=== PATIENT | male | born 1960 ===

== ENCOUNTER 2018-02-26 06:45 | Emergency (ER) | payer SELFPAY ==
[2018-02-26 07:02] VITALS: RESP 18; TEMP 98
--- NOTE | 2018-02-26 08:06 | C.PDOC ---
History Of Present Illness 57year old male, presents to ED with complaints of left shoulder pain for the past 6 months. Patient states the pain is aching, worse at night and cold temperatures. Patient reports he has been evaluated by his PMD regarding the same complaints and has had XRays done. Patient is taking Celebrex with mild relief of pain; reports after his most recent evaluation, he has been taking Tramadol with mild relief however the pain persists, prompting the visit today. Patient is currently requesting "a shot" for the pain. He denies any new injuries or trauma, weakness, numbness, or chest pain. He has no other medical complaints. Time Seen by Provider: 02/26/18 07:22 Chief Complaint (Nursing): Upper Extremity Problem/Injury History Per: Patient History/Exam Limitations: no limitations Onset/Duration Of Symptoms: Days Current Symptoms Are (Timing): Still Present Quality: "Pain" Severity: Moderate Exacerbating Factor(s): Worse At Night Recent travel outside of the [place] States: No Additional History Per: Patient Past Medical History Reviewed: Historical Data, Nursing Documentation, Vital Signs Vital Signs: Last Vital Signs Temp 98.0 F 02/26/18 06:57 Pulse 70 02/26/18 08:15 Resp 18 02/26/18 08:15 BP 121/77 02/26/18 08:15 Pulse Ox 98 02/26/18 10:38 - Medical History PMH: HTN Denies: Chronic Kidney Disease Surgical History: No Surg Hx Family History: States: No Known Family Hx - Social History Hx Alcohol Use: No Hx Substance Use: No - Immunization History Hx Influenza Vaccination: No Review Of Systems Except As Marked, All Systems Reviewed And Found Negative. Cardiovascular: Negative for: Chest Pain Musculoskeletal: Positive for: Shoulder Pain (left) Neurological: Negative for: Weakness, Numbness Physical Exam - Physical Exam Appears: Non-toxic, No Acute Distress Skin: Normal Color, Warm, Dry Head: Atraumatic, Normacephalic Eye(s): bilateral: Normal Inspection, EOMI Neck: Normal ROM, Supple Chest: Symmetrical Cardiovascular: Rhythm Regular Respiratory: Normal Breath Sounds, No Wheezing Extremity: Normal ROM, Tenderness (mild tenderness to lateral left shoulder), No Deformity Neurological/Psych: Oriented x3, Normal Speech Gait: Steady ED Course And Treatment O2 Sat by Pulse Oximetry: 98 (RA) Pulse Ox Interpretation: Normal Medical Decision Making Medical Decision Making: Impression: Musculoskeletal pain Plan: Patient with chronic left shoulder pain, no recent trauma. EKG obtained during triage NS at 72 bpm with LAD, no ST elevation or depression. Toradol IM ordered. Shortly after patient states the pain is better and asking for an Rx. Will prescribe prednisone. I recommend patient follow up with orthopedic or physical therapist. Disposition Counseled Patient/Family Regarding: Diagnosis, Need For Followup, Rx Given - Disposition Referrals: Reyes Jauregui III, MD [Staff Provider] - Disposition: HOME/ ROUTINE Disposition Time: 08:04 Condition: GOOD Additional Instructions: Brittany un seguimiento con king mdico u ortopdico si el dolor persiste Prescriptions: Prednisone 50 mg PO DAILY #4 tablet Instructions: Shoulder Pain (DC) Forms: [employer] (Samoan) Print Language: COL[place]AN - POA Present On Arrival: None - Clinical Impression Clinical Impression: Shoulder pain - PA / GRADE TEACHER / Resident Statement MD/DO has reviewed & agrees with the documentation as recorded. - Scribe Statement The provider has reviewed the documentation as recorded by the Scribe (Sakshi Lake) Provider Attestation: All medical record entries made by the Scribe were at my direction and personally dictated by me. I have reviewed the chart and agree that the record accurately reflects my personal performance of the history, physical exam, medical decision making, and the department course for this patient. I have also personally directed, reviewed, and agree with the discharge instructions and disposition.
[2018-02-26 08:16] VITALS: BP 121/77; PULSE 70
[2018-02-26 09:04] VITALS: O2SAT 98
--- NOTE | 2018-02-27 15:28 | CARD ---
APPROVED REPORT EKG Measurement Heart [id number] <Conclusion> Normal sinus rhythm Left axis deviation Abnormal ECG
== END 2018-02-26 08:16 | disposition home or self-care (01) ==
LOC: C.ER 06:45
DX: M25.512 Pain in left shoulder (principal); I10 Essential (primary) hypertension
CPT/HCPCS: 93005; 96372; 99284; J1885

== ENCOUNTER 2018-04-13 22:56 | Emergency (ER) | payer MEDICAID, OTHER ==
[2018-04-13 23:31] VITALS: BP 145/88; PULSE 90; RESP 20; TEMP 98.2; O2SAT 97
--- NOTE | 2018-04-14 00:58 | C.PDOC ---
History Of Present Illness 58 y/o male with hx dm, c/o 6 months of left upper arm pain and 2 days of bilateral lower leg pain.,described as tingling and burning, that hasn't allowed him to sleep. pt denies any trauma, fever, chills, swelling, no cp or sob. pt has tylenol #3, #4, and tramadol from his doctor for the arm pain; dx unclear. no prior hx of this leg pain. Time Seen by Provider: 04/13/18 23:44 Chief Complaint (Nursing): Upper Extremity Problem/Injury History Per: Patient, Family History/Exam Limitations: no limitations Onset/Duration Of Symptoms: Days (2) Current Symptoms Are (Timing): Still Present Quality: Burning, Other (tingling) Severity: Moderate Past Medical History Reviewed: Historical Data, Nursing Documentation, Vital Signs Vital Signs: Last Vital Signs Temp 98.2 F 04/13/18 23:27 Pulse 90 04/13/18 23:27 Resp 20 04/13/18 23:27 BP 145/88 04/13/18 23:27 Pulse Ox 97 04/14/18 03:36 - Medical History PMH: Diabetes, HTN Denies: Chronic Kidney Disease Family History: States: Unknown Family Hx - Social History Hx Alcohol Use: No Hx Substance Use: No - Immunization History Hx Influenza Vaccination: No Review Of Systems Constitutional: Negative for: Fever, Chills Cardiovascular: Negative for: Chest Pain Respiratory: Negative for: Cough, Shortness of Breath Gastrointestinal: Negative for: Nausea, Vomiting, Abdominal Pain Musculoskeletal: Positive for: Arm Pain (left upper), Leg Pain (bilateral) Skin: Negative for: Rash Neurological: Negative for: Weakness, Numbness Physical Exam - Physical Exam Appears: Non-toxic, No Acute Distress Skin: Warm, Dry Head: Atraumatic, Normacephalic Neck: Supple Chest: No Deformity, No Tenderness Cardiovascular: Rhythm Regular, No Murmur Respiratory: No Decreased Breath Sounds, No Wheezing Gastrointestinal/Abdominal: Bowel Sounds, No Tenderness Extremity: Normal ROM, No Tenderness, No Pedal Edema, Capillary Refill (less than 2 seconds), No Swelling, Other (bilateral lower ext from, no swelling, no erythema, warmth, or rash noted.ambulates with no difficulty. bilateral big toe nails discolored and thickened. ) Extremity: Bilateral: Atraumatic ED Course And Treatment O2 Sat by Pulse Oximetry: 97 Medical Decision Making Medical Decision Making: with bilateral burning tingling leg pain x 2 days,. hx dm. given one dose toradol in ed. advised to f/u pmd for further evaluation of possible diabetic neuropathy Disposition Counseled Patient/Family Regarding: Diagnosis, Need For Followup - Disposition Referrals: Podiatry Clinic [Outside] Disposition: HOME/ ROUTINE Disposition Time: 00:56 Condition: GOOD Additional Instructions: Por favor hadley un seguimiento con king mdico de atencin primaria el . P tenzin a king mdico que lo evale para la neuropata diabtica, y obtenga everett derivacin a podiatra y endocrinlogo. Please read information given about diabetic neuropathy. Alessandra la informacin sobre neuropata diabtica. Please follow up with your primary care doctor on Monday. Ask your doctor to evaluate you for diabetic neuropathy, and get referral to service desk lead and ribbing machine operator. Instructions: Diabetic Neuropathy (DC) Forms: Gen Discharge Inst Guamanian, [employer] (Guamanian) Print Language: [place] - Clinical Impression Clinical Impression: Leg pain, bilateral
== END 2018-04-14 01:15 | disposition home or self-care (01) ==
LOC: C.ER 22:56
DX: M79.661 Pain in right lower leg (principal); M79.662 Pain in left lower leg; E11.9 Type 2 diabetes mellitus without complications; I10 Essential (primary) hypertension
CPT/HCPCS: 82948; 96372; 99283; J1885